=== PATIENT | male | born 1970 | race Caucasian/White ===

== ENCOUNTER 2016-12-25 14:23 | Emergency (ER) | payer MEDICARE, MEDICAID ==
[2016-12-25] MEDS ORDERED: ACETAMINOPHEN 500 MG 500 MG TAB PO ONE (14:45)
[2016-12-25 14:47] LABS: BASOPHILS % (AUTO) 1 % (0-3); EOSINOPHILS % (AUTO) 2 % (0-9); HEMATOCRIT 37 % (39-53); MEAN CORPUSCULAR VOLUME 91 fL (80-100); NEUTROPHILS % (AUTO) 75.5 % (37-80)
[2016-12-25 14:53] LABS: CALCIUM 8.7 mg/dl (8.5-10.1); POTASSIUM 4.1 mMol/L (3.5-5.1)
[2016-12-25 14:56] VITALS: RESP 20; TEMP 98.1
[2016-12-25 15:10] LABS: ANISOCYTOSIS SL ANISO
[2016-12-25 15:55] VITALS: BP 100/66; PULSE 56; O2SAT 97
== END 2016-12-25 16:05 | disposition home or self-care (01) | DRG 101 ==
LOC: ED 14:23
DX: R56.9 Unspecified convulsions (principal)
CPT/HCPCS: 70450; 80048; 85025; 99284

== ENCOUNTER 2016-12-28 07:52 | Emergency (ER) | payer MEDICARE, MEDICAID ==
[2016-12-28 08:08] VITALS: RESP 16; O2SAT 100
[2016-12-28] MEDS ORDERED: SODIUM CHLORIDE 0.9% 1000ML 1,000 ML IV ONE (08:17)
[2016-12-28] MEDS ORDERED: SODIUM CHLORIDE 0.9% FLUSH 10 ML SOL IV PRN (08:43)
[2016-12-28 08:44] LABS: BASOPHILS % (AUTO) 1 % (0-3); EOSINOPHILS % (AUTO) 3 % (0-9); HEMATOCRIT 38 % (39-53); MEAN CORPUSCULAR HGB CONC 35.7 gm/dl (32.0-36.0); MEAN CORPUSCULAR VOLUME 91 fL (80-100); MONOCYTES % (AUTO) 9.7 % (0-12); NEUTROPHILS % (AUTO) 70.3 % (37-80)
[2016-12-28 08:55] LABS: CALCIUM 8.4 mg/dl (8.5-10.1); POTASSIUM 3.9 mMol/L (3.5-5.1)
[2016-12-28 09:05] LABS: APPEARANCE,URINE Clear; BILIRUBIN,URINE NEGATIVE (NEGATIVE); COLOR,URINE Yellow; GLUCOSE, URINE (UA) NEGATIVE (NEGATIVE); KETONES,URINE NEGATIVE (NEGATIVE); LEUKOCYTE ESTERASE ,URINE NEGATIVE (NEGATIVE); NITRATE,URINE NEGATIVE (NEGATIVE); OCCULT BLOOD,URINE NEGATIVE (NEG-TRACE); UROBILINOGEN,URINE 0.2 (0.2-1.0 EU)
[2016-12-28 09:24] LABS: RBC,URINE NEGATIVE (0-3AV/HPF); WBC,URINE 0-1 (0-5AV/HPF)
[2016-12-28 09:40] VITALS: BP 109/64; PULSE 62; TEMP 97.7
== END 2016-12-28 09:52 | disposition home or self-care (01) | DRG 605 ==
LOC: ED 07:52
DX: S00.83XA Contusion of other part of head, initial encounter (principal); E86.0 Dehydration; W07.XXXA Fall from chair, initial encounter
CPT/HCPCS: 36415; 70450; 80048; 81001; 85025; 93005; 96365; 99284

== ENCOUNTER 2018-03-27 20:52 | Inpatient (IN) | payer MEDICARE, MEDICAID ==
[2018-03-27] MEDS ORDERED: ONDANSETRON 4 MG ODT BU ONE (21:09)
[2018-03-27] MEDS ORDERED: HYDROMORPHONE HCL 2 MG/ML SOL IM ONE (21:09)
[2018-03-27] MEDS ORDERED: HYDROMORPHONE 1 MG/ML SYRINGE ONE ×2 (21:11→22:57)
[2018-03-27] MEDS ORDERED: ONDANSETRON 4 MG ODT ONE (21:11)
[2018-03-27] MEDS ORDERED: SODIUM CHLORIDE 0.9% 1000 ML SOL IV SCH (21:30)
[2018-03-27 22:03] LABS: APPEARANCE,URINE Clear; BILIRUBIN,URINE NEGATIVE (NEGATIVE); COLOR,URINE Yellow; GLUCOSE, URINE (UA) NEGATIVE (NEGATIVE); KETONES,URINE NEGATIVE (NEGATIVE); LEUKOCYTE ESTERASE ,URINE NEGATIVE (NEGATIVE); NITRATE,URINE NEGATIVE (NEGATIVE); OCCULT BLOOD,URINE NEGATIVE (NEG-TRACE); UROBILINOGEN,URINE 0.2 (0.2-1.0 EU)
[2018-03-27] MEDS ORDERED: ONDANSETRON HCL 4 MG/2 ML SOL IV ONE (22:04)
[2018-03-27] MEDS ORDERED: ONDANSETRON HCL 4 MG/2 ML SOL ONE (22:05)
[2018-03-27 22:06] LABS: HEMATOCRIT 39 % (39-53); HEMOGLOBIN 12.6 gm/dl (13.5-17.7); MEAN CORPUSCULAR HEMOGLOBIN 31.4 pg (27.0-32.0); MEAN CORPUSCULAR HGB CONC 32.4 gm/dl (32.0-36.0); MEAN CORPUSCULAR VOLUME 97 fL (80-100)
[2018-03-27 22:09] LABS: BILIRUBIN,TOTAL 0.5 mg/dl (0.2-1.0); CALCIUM 8.1 mg/dl (8.5-10.1); CARBON DIOXIDE 29.3 mEq/L (21-32); CREATININE 1.24 mg/dl (0.80-1.30); POTASSIUM 4.6 mMol/L (3.5-5.1); TOTAL PROTEIN 7.6 gm/dl (6.4-8.2)
[2018-03-27 22:37] LABS: BACTERIA TRACE (< 1+); CRYSTALS NEGATIVE (0-3 AVE/HPF); EPITHELIAL CELLS 0-1 (SQUAMOUS); RBC,URINE 0-2 (0-3AV/HPF); WBC,URINE 0-2 (0-5AV/HPF)
[2018-03-27 22:40] LABS: BAND NEUTROPHILS % (MANUAL) 1 %; BASOPHILS % (MANUAL) 0 % (0-3); EOSINOPHILS % (MANUAL) 2 % (0-9); LYMPHOCYTES % (MANUAL) 11 % (10-50); MONOCYTES % (MANUAL) 2 % (0-12); NEUTROPHILS % (MANUAL) 84 % (37-80)
[2018-03-27 22:41] LABS: NORMAL RBCS NORMAL RBCS
[2018-03-27] MEDS ORDERED: HYDROMORPHONE 1 MG/ML SYRINGE IV ONE (22:56)
[2018-03-27] MEDS ORDERED: KETOROLAC TROMETHAMINE 30 MG/ML SOL IV ONE (23:15)
[2018-03-27] MEDS ORDERED: NALOXONE HYDROCHLORIDE 0.4 MG/ML SOL IV ONE (23:15)
[2018-03-27] MEDS ORDERED: AZITHROMYCIN 250 MG TAB PO ONE (23:15)
[2018-03-27] MEDS ORDERED: NALOXONE HYDROCHLORIDE 0.4 MG/ML SOL ONE (23:48)
[2018-03-27] MEDS ORDERED: METOCLOPRAMIDE HYDROCHLORIDE 5 MG/ML SOL IV ONE (23:55)
[2018-03-27] MEDS ORDERED: PROMETHAZINE HYDROCHLORIDE 25 MG/ML SOL IV ONE (23:55)
[2018-03-27] MEDS ORDERED: PROMETHAZINE HYDROCHLORIDE 25 MG/ML SOL ONE (23:56)
[2018-03-27] MEDS ORDERED: METOCLOPRAMIDE HYDROCHLORIDE 5 MG/ML SOL ONE (23:56)
[2018-03-28] MEDS ORDERED: SODIUM CHLORIDE 0.9% 1000 ML SOL IV SCH (00:15)
[2018-03-28] MEDS ORDERED: NALOXONE HYDROCHLORIDE 0.4 MG/ML SOL IV ONE (00:34)
[2018-03-28] MEDS ORDERED: NALOXONE HYDROCHLORIDE 0.4 MG/ML SOL ONE (00:35)
[2018-03-28] MEDS ORDERED: AZITHROMYCIN 250 MG TAB ONE (01:11)
[2018-03-28] MEDS ORDERED: LORAZEPAM 2 MG/ML SOL IV ONE (01:50)
[2018-03-28] MEDS ORDERED: ALBUTEROL NEB SOL 2.5MG/3ML 1 VIAL SOL NEB PRN (02:03)
[2018-03-28] MEDS ORDERED: ONDANSETRON HCL 4 MG/2 ML SOL IV PRN (02:03)
[2018-03-28] MEDS ORDERED: ACETAMINOPHEN 500 MG 500 MG TAB PO PRN (02:06)
[2018-03-28] MEDS ORDERED: LORAZEPAM 0.5 MG TAB PO PRN (02:06)
[2018-03-28] MEDS ORDERED: CEFAZOLIN SODIUM 1 GM PDS ONE (02:12)
[2018-03-28] MEDS: SODIUM CHLORIDE 0.9% FLUSH 10 ML SOL IV SCH ×3 (02:15→20:07)
[2018-03-28] MEDS ORDERED: OLIVE OIL OT SCH ×2 (02:15→09:00)
[2018-03-28] MEDS: CEFTRIAXONE 1 GM (PREMIX) 1 GM/50 ML SOL IV SCH (02:15)
[2018-03-28] MEDS: ALBUTEROL/IPRATROPIUM 1 VIAL SOL NEB SCH ×4 (03:00→20:07)
[2018-03-28] MEDS ORDERED: Non-Formulary Medication MISC (Levothyroxine Sodium 88 Mcg 88 MCG) PO SCH ×2 (07:00→09:00)
[2018-03-28 07:29] LABS: BASOPHILS % (AUTO) 2 % (0-3); EOSINOPHILS % (AUTO) 1 % (0-9); HEMATOCRIT 38 % (39-53); HEMOGLOBIN 11.9 gm/dl (13.5-17.7); LYMPHOCYTES % (AUTO) 8.1 % (10-50); MEAN CORPUSCULAR HEMOGLOBIN 31.1 pg (27.0-32.0); MEAN CORPUSCULAR HGB CONC 31.7 gm/dl (32.0-36.0); MEAN CORPUSCULAR VOLUME 98 fL (80-100); MONOCYTES % (AUTO) 7.8 % (0-12); NEUTROPHILS % (AUTO) 81.9 % (37-80)
[2018-03-28 07:38] LABS: CALCIUM 7.8 mg/dl (8.5-10.1); CREATININE 1.16 mg/dl (0.80-1.30); POTASSIUM 4.6 mMol/L (3.5-5.1)
[2018-03-28 07:46] LABS: CARBON DIOXIDE 30.1 mEq/L (21-32)
[2018-03-28] MEDS ORDERED: TRIAMCINOLONE 0.1% TOP SCH (09:00)
[2018-03-28] MEDS: ESCITALOPRAM 10 MG TAB PO SCH (09:00)
[2018-03-28] MEDS: LEVOTHYROXINE SODIUM 88 MCG TAB PO SCH (09:00)
[2018-03-28] MEDS: DONEPEZIL 5 MG 5 MG TAB PO SCH (20:25)
[2018-03-29] MEDS ORDERED: CEFTRIAXONE 1 GM PDS ONE (01:50)
[2018-03-29] MEDS: CEFTRIAXONE 1 GM (PREMIX) 1 GM/50 ML SOL IV SCH (02:07)
[2018-03-29] MEDS: SODIUM CHLORIDE 0.9% FLUSH 10 ML SOL IV SCH ×3 (02:07→19:23)
[2018-03-29] MEDS: ALBUTEROL/IPRATROPIUM 1 VIAL SOL NEB SCH ×5 (02:16→20:18)
[2018-03-29] MEDS: LEVOTHYROXINE SODIUM 88 MCG TAB PO SCH (06:26)
[2018-03-29 07:14] LABS: CALCIUM 8.4 mg/dl (8.5-10.1); CREATININE 1.18 mg/dl (0.80-1.30); POTASSIUM 3.9 mMol/L (3.5-5.1)
[2018-03-29 07:21] LABS: CARBON DIOXIDE 31.9 mEq/L (21-32)
[2018-03-29] MEDS: ESCITALOPRAM 10 MG TAB PO SCH (08:27)
[2018-03-29] MEDS: AZITHROMYCIN 250 MG TAB PO SCH (09:17)
[2018-03-29] MEDS: CEFDINIR 300 MG CAP PO SCH ×2 (11:47→20:24)
[2018-03-29] MEDS: DONEPEZIL 5 MG 5 MG TAB PO SCH (20:23)
[2018-03-30] MEDS: ALBUTEROL/IPRATROPIUM 1 VIAL SOL NEB SCH ×2 (03:04→08:52)
[2018-03-30] MEDS: SODIUM CHLORIDE 0.9% FLUSH 10 ML SOL IV SCH ×2 (03:06→11:47)
[2018-03-30] MEDS: LEVOTHYROXINE SODIUM 88 MCG TAB PO SCH (06:29)
[2018-03-30 08:50] VITALS: BP 109/68; TEMP 97.8
[2018-03-30] MEDS: ESCITALOPRAM 10 MG TAB PO SCH (08:54)
[2018-03-30] MEDS: CEFDINIR 300 MG CAP PO SCH (08:54)
[2018-03-30] MEDS: AZITHROMYCIN 250 MG TAB PO SCH (08:55)
[2018-03-30 09:03] VITALS: RESP 18
[2018-03-30 11:48] VITALS: PULSE 58; O2SAT 99
== END 2018-03-30 13:15 | disposition home or self-care (01) | DRG 179 ==
LOC: ED 20:52 → ACUTE CARE 03-28 01:48
PROVIDERS: ADMIT Emergency Medicine; ATTEND Emergency Medicine
DX: J18.9 Pneumonia, unspecified organism (principal); R19.7 Diarrhea, unspecified; J69.0 Pneumonitis due to inhalation of food and vomit; Q90.9 Down syndrome, unspecified; G47.33 Obstructive sleep apnea (adult) (pediatric); K80.20 Calculus of gallbladder without cholecystitis without obstruction; R10.9 Unspecified abdominal pain
CPT/HCPCS: 36415; 74177; 80048; 80053; 81001; 82150; 85007; 85025; 85027; 87040; 94640; 94660; 94664; 94762; 96365; 96366; 96372; 96374; 96375; 99222; 99285; J0690; J0696; J2060; J2310; J2405; J2550; J2765; J7613; Q9967; A9270-GY; J1170

== ENCOUNTER 2018-04-11 07:10 | Day surgery (SDC) | payer MEDICARE, MEDICAID ==
[2018-04-11] MEDS ORDERED: PROPOFOL 10 MG/ML 200 MG/20 ML EMU IV ONE ×2 (07:26→07:28)
[2018-04-11] MEDS ORDERED: ONDANSETRON HCL 4 MG/2 ML SOL ONE (07:37)
[2018-04-11 08:51] VITALS: BP 103/74; PULSE 65; RESP 20; TEMP 98; O2SAT 97
== END 2018-04-11 09:00 | disposition home or self-care (01) | DRG 392 ==
LOC: SURG 07:10
PROVIDERS: ATTEND Surgery
DX: R10.13 Epigastric pain (principal); R10.11 Right upper quadrant pain; K29.70 Gastritis, unspecified, without bleeding; L53.8 Other specified erythematous conditions
CPT/HCPCS: J2405; J2704

== ENCOUNTER 2018-04-25 22:30 | Emergency (ER) | payer MEDICARE, MEDICAID ==
[2018-04-25 22:42] VITALS: RESP 18; TEMP 98; O2SAT 100
[2018-04-25 23:31] LABS: LACTIC ACID 1.4 mMol/L (0.0-2.0)
[2018-04-25 23:37] LABS: ALBUMIN 2.9 gm/dl (3.4-5.0); BILIRUBIN,TOTAL 0.5 mg/dl (0.2-1.0); CALCIUM 7.8 mg/dl (8.5-10.1); CARBON DIOXIDE 30.4 mEq/L (21-32); CREATININE 1.46 mg/dl (0.80-1.30); POTASSIUM 3.8 mMol/L (3.5-5.1); TOTAL PROTEIN 7.1 gm/dl (6.4-8.2)
[2018-04-25 23:38] LABS: HEMATOCRIT 37 % (39-53); HEMOGLOBIN 12.3 gm/dl (13.5-17.7); MEAN CORPUSCULAR HEMOGLOBIN 31.7 pg (27.0-32.0); MEAN CORPUSCULAR HGB CONC 32.8 gm/dl (32.0-36.0); MEAN CORPUSCULAR VOLUME 97 fL (80-100)
[2018-04-25 23:53] LABS: ANISOCYTOSIS SLIGHT; BAND NEUTROPHILS % (MANUAL) 0 %; BASOPHILS % (MANUAL) 1 % (0-3); EOSINOPHILS % (MANUAL) 2 % (0-9); LYMPHOCYTES % (MANUAL) 20 % (10-50); MONOCYTES % (MANUAL) 8 % (0-12); NEUTROPHILS % (MANUAL) 69 % (37-80)
[2018-04-26 00:42] VITALS: BP 101/65; PULSE 48
== END 2018-04-26 00:35 | disposition home or self-care (01) | DRG 392 ==
LOC: ED 22:30
DX: R10.9 Unspecified abdominal pain (principal)
CPT/HCPCS: 36415; 74019; 80053; 85007; 85027; 99282; 99283

== ENCOUNTER 2018-11-18 20:04 | Emergency (ER) | payer MEDICARE, MEDICAID ==
[2018-11-18] MEDS ORDERED: ALBUTEROL/IPRATROPIUM 1 VIAL SOL INH ONE (20:55)
[2018-11-18 21:12] VITALS: TEMP 97
[2018-11-18] MEDS ORDERED: ALBUTEROL/IPRATROPIUM 1 VIAL SOL ONE (21:18)
[2018-11-18 21:26] LABS: HEMATOCRIT 36 % (39-53); MEAN CORPUSCULAR HGB CONC 33.2 gm/dl (32.0-36.0); MEAN CORPUSCULAR VOLUME 97 fL (80-100)
[2018-11-18 21:30] LABS: LACTIC ACID 1.3 mMol/L (0.0-2.0)
[2018-11-18 21:33] LABS: ALBUMIN 2.8 gm/dl (3.4-5.0); BILIRUBIN,TOTAL 0.4 mg/dl (0.2-1.0); CALCIUM 7.4 mg/dl (8.5-10.1); CARBON DIOXIDE 29.6 mEq/L (21-32); CREATININE 1.57 mg/dl (0.80-1.30); TOTAL PROTEIN 7.5 gm/dl (6.4-8.2)
[2018-11-18 21:54] VITALS: BP 110/63; PULSE 66; RESP 14; O2SAT 94
[2018-11-18 22:01] LABS: BAND NEUTROPHILS % (MANUAL) 11 %; BASOPHILS % (MANUAL) 0 % (0-3); EOSINOPHILS % (MANUAL) 0 % (0-9); LYMPHOCYTES % (MANUAL) 11 % (10-50); MONOCYTES % (MANUAL) 7 % (0-12); NEUTROPHILS % (MANUAL) 71 % (37-80)
[2018-11-18] MEDS ORDERED: AZITHROMYCIN 250 MG TAB PO ONE (22:07)
[2018-11-18] MEDS ORDERED: AZITHROMYCIN 250 MG TAB ONE (22:08)
== END 2018-11-18 22:25 | DRG 153 ==
LOC: ED 20:04
DX: J06.9 Acute upper respiratory infection, unspecified (principal); E03.9 Hypothyroidism, unspecified
CPT/HCPCS: 36415; 71046; 80053; 85007; 85027; 99283; A9270-GY

== ENCOUNTER 2019-02-05 19:15 | Emergency (ER) | payer MEDICARE, MEDICAID | END 2019-02-05 21:56 | disposition home or self-care (01) | LOC: ED 19:15 ==